=== PATIENT | male | born 1955 | race Caucasian/White ===

== ENCOUNTER 2020-06-06 09:18 | Outpatient (CLI) | payer OTHER, SELFPAY | END 2020-06-06 09:19 | disposition home or self-care (01) | LOC: ANHCOVIDVC 09:18 | PROVIDERS: PCP Family Medicine; Visit Provider Family Medicine | DX: Z23 Encounter for immunization (principal) | CPT/HCPCS: 0001A; 91300 ==

== ENCOUNTER 2020-06-27 09:14 | Outpatient (CLI) | payer OTHER, SELFPAY | END 2020-06-27 09:15 | disposition home or self-care (01) | LOC: ANHCOVIDVC 09:14 | PROVIDERS: PCP Family Medicine | DX: Z23 Encounter for immunization (principal) | CPT/HCPCS: 0002A; 91300 ==

== ENCOUNTER 2022-05-09 04:13 | Observation (INO) | payer OTHER, SELFPAY ==
[2022-05-09] VITALS (44 sets, daily range): BP systolic 111–167; BP diastolic 72–116; PULSE 49–82; RESP 11–22; TEMP 36.2–36.8; O2SAT 94–100; BMI 29.2; BMI 28.3
--- NOTE | ~2022-05-09 | CT_ITS ---
CT Abdomen and Pelvis with contrast. History: Abdominal pain. Spiral CT of the abdomen and pelvis was performed after the administration of intravenous contrast. 1 00 cc of Omnipaque 350 was administered intravenously without complication. Dose reduction technique was used on this scan by utilizing automated exposure control and iterative reconstruction technique. The dose-length product (DLP) was 947.75 mGy-cm. COMPARISON: 02/26/2019 Findings: Scans through the lung bases demonstrate mild atelectatic change. The liver, spleen, pancreas, gallbladder, and adrenal glands are within normal limits. Horseshoe kidn ey noted. No evidence of aortic aneurysm. There is no evidence of bowel obstruction. There is no evidence to suggest acute appendicitis or dive rticulitis. There is haziness of the central mesentery with mildly enlarged central mesenteric lymph nodes, consistent with mesenteric panniculitis. Images through the pelvis were performed. Urinary bladder unremarkable. Prostate gland and seminal ve sicles are unremarkable. No ascites is seen. Impression: Mesenteric panniculitis, as detailed above. Horseshoe kidney. Reviewed, dictated and finalized at [facility]. IZATION REVIEWER Impression: Mesenteric panniculitis, as detailed above. Horseshoe kidney.
--- NOTE | ~2022-05-09 | XR_ITS ---
Clinical Indication: Chest pain PA and lateral views of the chest: Comparison: 07/04/2015 Findings: The lungs are clear, without evidence of focal consolidation or pleural effusion. Cardiome diastinal silhouette is within normal limits. Bones and soft tissues are unremarkable. Impression: Normal chest. Reviewed, dictated and finalized at location . FORM BUILDER Impression: Normal chest.
--- NOTE | 2022-05-09 04:19 | ECG_ITS ---
Measurements Intervals [place] Rate: 63 P: 27 [place]: 224 QRS: 24 QRSD: 93 T: 30 QT: 373 QTc: 383 Interpretive Statements SINUS RHYTHM WITH FIRST DEGREE AV BLOCK SEPTAL MYOCARDIAL INFARCTION , OF INDETERMINATE AGE [40+ ms Q WAVE IN V1/V2] ABNORMAL ECG NO PREVIOUS ECG AVAILABLE FOR COMPARISON Electronically Signed On 05-09-2022 10:08:45 MANAGER RADIATION by Jim Carr M.D.
[2022-05-09 04:33] LABS: Basophils Percent Auto 0.5 % (0.2-1.2); Eosinophils Absolute Auto 0.3 K/mm3 (0-0.3); Eosinophils Percent Auto 3.9 % (0-4.4); Hematocrit 46.1 % (42.0-52.0); Immature Granulocyte Absolute 0.02 K/mm3 (0.00-0.031); Immature Granulocyte Percent A 0.3 % (0-0.5); Lymphocytes Absolute Auto 3.03 K/mm3 (0.9-3.2); Lymphocytes Percent Auto 39.4 % (18.3-44.2); Mean Corpuscular HGB Conc 34.7 g/dl (32-36); Mean Corpuscular Hemoglobin 29.6 pg (26-34); Mean Corpuscular Volume 85.2 fl (80-100); Monocytes Absolute Auto 0.6 K/mm3 (0.1-0.6); Monocytes Percent Auto 8.3 % (2.6-8.5); Neutrophils Absolute Auto 3.7 K/mm3 (1.3-6.7); Neutrophils Percent Auto 47.6 % (45.5-73.1); Platelet Count Result 251 k/mm3 (150-375); Red Blood Count 5.41 M/mm3 (4.6-6.20); Red Cell Distribution Width 12.9 % (11.5-14.5); White Blood Count 7.7 K/mm3 (4.5-10.0)
--- NOTE | 2022-05-09 04:43 | ED.CHESTPAIN ---
HPI - Chest Pain General Chief Complaint: Chest Pain Stated Complaint: chest pain Time Seen by Provider: 05/09/22 04:16 Source: patient, RN notes reviewed and old records reviewed Mode of arrival: ambulatory Limitations: no limitations History of Present Illness HPI narrative: This is a 67 year old male with history of hypertension, hyperlipidemia, CAD with stents who presents for evaluation of left chest pain. Patient states he woke up from his sleep with severe left upper chest pain that radiates to his back. He took 2 full strength aspirin, and he states his pain improved from 8 to 4/10. He also reports having diaphoresis at time of severe pain. He states he has similar pain years ago when he was told that he needed stent placement. He denies having exertional chest pain . He denies cough, fever, chills, vomiting. He reports chronic left flank pain that has been present for 1 year. He states his pain is intermittent. 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 Related Data Home Medications Medication Instructions Recorded Confirmed evolocumab 420 mg/3.5 mL mg subcut 08/22/20 08/22/20 subcutaneous wearable injector (Repatha Pushtronex) quinapril 10 mg tablet (Accupril) 10 mg PO DAILY 08/22/20 08/22/20 aspirin 81 mg tablet,delayed 81 mg PO DAILY 05/01/22 release (Kendall Low Dose Aspirin) carvedilol 6.25 mg tablet 6.25 mg PO ONCE 05/01/22 quinapril 20 mg tablet 20 mg PO DAILY 05/01/22 Allergies Allergy/AdvReac Type Severity Reaction Status Date / Time atorvastatin Allergy Unknown - severe Verified 05/01/22 11:27 muscular aches levofloxacin Allergy Unknown Nausea Verified 05/01/22 11:27 simvastatin Allergy Unknown -severe Verified 05/01/22 11:27 muscle aches No Known Allergies Allergy Verified 05/01/22 11:27 Review of Systems Constitutional: Constitutional: Denies weakness Cardiovascular: Cardiovascular: Denies syncope, Denies rapid heart rate, Denies irregular heart rhythm, Denies leg edema and Denies dyspnea Respiratory: Respiratory: Denies chest congestion, Denies hemoptysis, Denies excessive phlegm production and Denies dyspnea Gastrointestinal: Gastrointestinal: Reports abdominal pain, Denies hematochezia, Denies diarrhea and Denies vomiting Genitourinary: Genitourinary: Denies hematuria, Denies dysuria, Denies penile discharge and Denies testicular pain Musculoskeletal: Musculoskeletal: Denies joint swelling, Denies loss of height and Denies muscle weakness Neurologic: Denies syncope, Denies focal weakness, Reports numbness (chronic left arm from previous nerve damage) and Denies weakness PMFSH Past Medical History Medical History Angina pectoris, unspecified Anterior dislocation of left shoulder Brachial plexopathy Cardiac disorder Hypertension LLQ abdominal pain Reflux esophagitis Tietze's disease Vascular occlusion Surgical History Surgical History History of back surgery S/P Sal fundoplication (with gastrostomy tube placement) S/P ureteral stent placement Family History Family History Mother Cerebrovascular accident Father Family history of malignant neoplasm Family history of heart disease in male family member before age 55 Other Family history of congenital heart disease Social History Social History Smoking status: Never smoker Alcohol intake: current Lack of Transportation: No Lack of Food: Never True Current Housing: I Have Housing Concerned About Future Housing: No Difficulty Paying Gas/Electric Bills: No Difficulty Paying for Meds: No Currently Unemployed: No Education: High School Diploma/GED Difficulty w/ Childcare or Family Care: No Exam Const: General: no acute distress and alert Nutritional Appearance:
[2022-05-09 04:44] LABS: Alanine Aminotransferase 29 U/L (6-50); Albumin Level 4.2 g/dL (3.5-5.1); Alkaline Phosphatase 68 U/L (38-126); Anion Gap 7 mmol/L (8-16); Aspartate Amino Transferase 35 U/L (17-59); Blood Urea Nitrogen 13 mg/dL (9-20); Carbon Dioxide 28 mmol/L (22-30); Chloride 105 mmol/L (98-107); Estimated CRCL calculation 81 ml/min; Estimated Glomerular Filt Rate > 60; Glucose 94 mg/dL (65-110); INR 1.1; Lipase 907 U/L (23-300); Potassium 3.9 mmol/L (3.4-5.0); Prothrombin Time 14.1 Seconds (11.1-14.7); Sodium 140 mmol/L (137-145)
[2022-05-09 04:55] LABS: Troponin I < 0.012 ng/mL (0.000-0.034)
[2022-05-09] MEDS: NITROGLYCERIN SL 0.4 MG TABLET SUBLINGUAL (04:55)
[2022-05-09 06:51] LABS: Appearance Urine Clear (Clear); Bilirubin Urine Negative (Negative); Blood Urine Negative (Negative); Color Urine Yellow (Yellow); Glucose Urine UA Negative (Negative); Ketones Urine Negative (Negative); Leukocyte Esterase Ur Negative LEU/UL (Negative); Nitrate Urine Negative (Negative); Protein Urine Negative (Negative); Urobilinogen Urine 0.2 mg/dL (<2.0); pH Urine 5.5 (5.0-9.0)
[2022-05-09 06:58] LABS: Add Urine Microscopic? NO
[2022-05-09 08:06] LABS: Troponin I < 0.012 ng/mL (0.000-0.034)
[2022-05-09 09:58] LABS: Influenza A QL RT-PCR Negative (Negative); Influenza B QL RT-PCR Negative (Negative); SARS-CoV-2 RNA PCR Negative
[2022-05-09 10:34] LABS: Troponin I < 0.012 ng/mL (0.000-0.034)
--- NOTE | 2022-05-09 13:08 | PM.CNCAR ---
Assessment and Plan Assessment and plan (1) CAD (coronary artery disease): Code(s): I25.10 - Atherosclerotic heart disease of [place] coronary artery without angina pectoris Status: Acute Assessment and Plan: Known history of stenosis to the LAD. Continue aspirin, Repatha, carvedilol, quinapril (2) Chest pain: Code(s): R07.9 - Chest pain, unspecified Status: Acute Assessment and Plan: Chest pain is worrisome for unstable angina. Chest pain resolved with aspirin and nitroglycerin. Will receive heparin. Hold Xarelto. Continue aspirin, beta-haroon, Repatha, quinapril. After talk to him about the risks, benefits alternatives he is agreeable to proceed with a coronary angiogram to define his anatomy. I think this is reasonable given the fact he has had negative stress test in this past despite having obstructive disease and the 5 his symptoms did improve with aspirin and nitro. (3) Mixed hyperlipidemia: Code(s): E78.2 - Mixed hyperlipidemia Status: Acute Assessment and Plan: Continue Repatha (4) Essential (primary) hypertension: Code(s): I10 - Essential (primary) hypertension Status: Acute Assessment and Plan: Continue with carvedilol and quinapril History of Present Illness History of Present Illness Consult date/time: 05/09/22 13:08 Requesting physician: Radha Fulton MD Consult reason: chest pain Reason For Visit: chest pain Narrative: Date of Service 05/09/2022 Reason for consultation chest pain Requesting provider: Dr. Fulton History: Patient is a 67-year-old male who has a history of CAD. He underwent a coronary angiogram in 2018 which was IFR positive lesion in the mid LAD status post VANCE. He had 50-60% diffuse stenosis in the proximal segment RPL branch. He came to the hospital last night because of acute onset of left upper chest pain. Chest pain radiated to the back. It was not associated with the symptoms. It did not radiate down his arm back neck or jaw. His EKG showed no acute ST or T-wave abnormalities but his pain was improved with aspirin that he took home an incompletely resolved following nitroglycerin whenever he came to the ER. He denies any syncope, presyncope, paroxysmal nocturnal dyspnea, orthopnea, edema palpitations Review of Systems Review of Systems: All systems reviewed & are unremarkable except as noted in HPI and below Constitutional: Constitutional: Denies body ache(s) Eyes: Eyes: Denies blurry vision ENT: Reports Normal hearing present Cardiovascular: Cardiovascular: Reports chest pain and Denies diaphoresis Respiratory: Respiratory: Denies chest congestion and Denies cough Gastrointestinal: Gastrointestinal: Denies abdominal pain Genitourinary: Genitourinary: Denies hematuria Musculoskeletal: Musculoskeletal: Denies back pain Integumentary/Breasts: Skin/Breast: Denies pruritus Neurologic: Denies Abnormal speech present Psychiatric: Psychiatric: Denies anxiety and Denies behavioral changes Endocrine: Endocrine: Denies excessive sweating Hematologic/Lymphatic: Hematologic/Lymphatic: Denies easy bleeding Allergic/Immunologic: Allergic/Immunologic: Denies GI upset with certain foods PMFSH Past Medical History Medical History Angina pectoris, unspecified Anterior dislocation of left shoulder Brachial plexopathy Cardiac disorder Hypertension LLQ abdominal pain Reflux esophagitis Tietze's disease Vascular occlusion Surgical History Surgical History History of back surgery S/P Sal fundoplication (with gastrostomy tube placement) S/P ureteral stent placement Family History Family History Mother Cerebrovascular accident Father Family history of malignant neoplasm Family history of heart disease in male
--- NOTE | 2022-05-09 13:50 | WPDMODSED ---
Moderate Sedation Note-Pt Data Patient Data Diagnosis: Coronary artery disease Present Complaint: Coronary artery disease Procedure to be performed/Plan: Coronary artery disease, LHC, +/- PCI Allergies Allergy/AdvReac Type Severity Reaction Status Date / Time atorvastatin Allergy Unknown - severe Verified 05/01/22 11:27 muscular aches levofloxacin Allergy Unknown Nausea Verified 05/01/22 11:27 simvastatin Allergy Unknown -severe Verified 05/01/22 11:27 muscle aches No Known Allergies Allergy Verified 05/01/22 11:27 Home Medications Medication Instructions Recorded Confirmed Type evolocumab 420 mg/3.5 mL mg subcut 08/22/20 08/22/20 History subcutaneous wearable injector (Repatha Pushtronex) quinapril 10 mg tablet (Accupril) 10 mg PO DAILY 08/22/20 08/22/20 History aspirin 81 mg tablet,delayed 81 mg PO DAILY 05/01/22 History release (Kendall Low Dose Aspirin) carvedilol 6.25 mg tablet 6.25 mg PO ONCE 05/01/22 History quinapril 20 mg tablet 20 mg PO DAILY 05/01/22 History Current Medications: Active Medications Acetaminophen (Ofirmev 1,000 Mg Ivpb) 1,000 mg in 100 mls @ 400 mls/hr IVPB Q6H PRN PRN Reason: Mild Pain (1-3) or Fever Stop: 05/10/22 07:17 Sodium Chloride (Normal Saline Iv) 1,000 mls @ 125 mls/hr IV CONT .Q8H ONE Stop: 05/09/22 21:46 Morphine Sulfate (Morphine Sulfate (*Crx) 4 Mg/Ml Inj) 4 mg IV PUSH Q2H PRN PRN Reason: Pain Rated 7-10 Nitroglycerin (Nitroglycerin Sl 0.4 Mg Tablet) 0.4 mg SUBLINGUAL Q5MIN PRN PRN Reason: Chest Pain Ondansetron HCl (Ondansetron Inj 4 Mg/2 Ml Vial) 4 mg IV PUSH Q4H PRN PRN Reason: Nausea Sedation/Anesthesia: No previous sedation/anesthesia problems (including family history). FOR[facility], [facility] Past Medical History Medical History Angina pectoris, unspecified Anterior dislocation of left shoulder Brachial plexopathy Cardiac disorder Hypertension LLQ abdominal pain Reflux esophagitis Tietze's disease Vascular occlusion Surgical History Surgical History History of back surgery S/P Sal fundoplication (with gastrostomy tube placement) S/P ureteral stent placement Family History Family History Mother Cerebrovascular accident Father Family history of malignant neoplasm Family history of heart disease in male family member before age 55 Other Family history of congenital heart disease Social History Social History Smoking status: Never smoker Alcohol intake: current Lack of Transportation: No Lack of Food: Never True Current Housing: I Have Housing Concerned About Future Housing: No Difficulty Paying Gas/Electric Bills: No Difficulty Paying for Meds: No Currently Unemployed: No Education: High School Diploma/GED Difficulty w/ Childcare or Family Care: No Mod Sed Physical Exam Physical Exam Pre Procedural Exam: Normal: Appearance, Lungs, Heart Rate, Heart Rhythm, Neuro Exam, Abdomen, Extremities and Skin Hours since solid foods: 12 Hours since liquid intake: 8 Mallampati Classification: class III Internal Medicine - PN: Obj Da Vital Signs Vital Signs: Vital Signs - 24 hr 05/09/22 04:16 05/09/22 04:20 05/09/22 04:21 Temperature 36.8 C Pulse Rate 82 70 Respiratory Rate 21 H Blood Pressure 167/116 H Pulse Oximetry 98 Oxygen Delivery Room Air 05/09/22 04:49 05/09/22 04:57 05/09/22 05:00 Temperature Pulse Rate 57 L 62 64 Respiratory Rate 17 22 H 21 H Blood Pressure 140/85 Pulse Oximetry Oxygen Delivery 05/09/22 05:01 05/09/22 05:17 05/09/22 05:30 Temperature Pulse Rate 66 56 L 53 L Respiratory Rate 21 H 13 14 Blood Pressure 120/79 Pulse Oximetry Oxygen Delivery 05/09/22 05:31 05/09/22 05:32 05/09/22 06:29 Temperature
--- NOTE | 2022-05-09 13:51 | WPDCARDPROC ---
Cardiac Cath Procedure Note Date of procedure:: 05/09/22 Performing physician:: CATHETERIZATION LABORATORY REPORT Procedure Date: 05/09/2022 Barrel Charrer: Joshua Varela M.D., [facility]? Referring Physician: Vernon Carr M.D. ? Anesthesia: Versed and Fentanyl were ordered and given in my presence at 13:28, procedure ended at 13:41. Supervision of nurse monitored moderate sedation with Versed and Fentanyl was provided for 13 minutes. Total of Versed 2mg and Fentanyl 50mcg were administered by the Decision Support Manager RN Dianna Vargas. Pre-op Diagnosis: Coronary artery disease Post-op Diagnosis: 1. Nonobstructive coronary artery disease. Widely patent mid LAD stent. Mild diffuse disease of proximal RPLV. 2. Low left ventricular end-diastolic pressure of 1mmHg. Procedure(s): Left heart catheterization with coronary angiography Access Site: Right radial artery Brief History and Clinical Indications: Patient is a 67-year-old with CAD s/p prior LAD PCI who is referred for [facility] for chest pain. All risks, benefits and alternatives to left heart catheterization with or without percutaneous coronary intervention was discussed at length with the patient. Risk of complications including but not limited to bleeding, infection, arrhythmia, stroke, worsening kidney function, blood loss, groin hematoma, limb loss, emergency coronary artery bypass grafting, and even were discussed with the patient and all questions were answered. The patient understood and wished to proceed. Time out called, patient name, date of , medical record number, allergies, procedure performed, identify Barrel Charrer, patient and staff member concurred with accurate data, procedure carried on. Findings: LEFT HEART CATHETERIZATION FINDINGS: 1. Left main: The left main coronary artery is widely patent without any significant obstructive disease. 2. Left anterior descending: The proximal LAD has mild luminal irregularities. There is a widely patent stent in the mid LAD. Mid LAD has mild luminal irregularities. The distal and apical LAD has mild diffuse disease. The first diagonal vessel has mild luminal irregularities. 3. Left circumflex: The left circumflex artery and the main marginal branches have mild luminal irregularities without any significant obstructive angiographic disease. 4. Right coronary artery: The RCA is the dominant vessel. The RCA has mild diffuse disease. The proximal portion of the RPLV has mild diffuse disease. 5. Left ventricle: A. End-diastolic pressure 1mmHg. B. LV gram deferred. C. No significant gradient across aortic valve on catheter pullback. Description of Procedure: Informed consent signed and placed in the chart. Patient transferred to dental laboratory manager room. Prepped and draped in usual sterile fashion. 2% lidocaine injected subcutaneously in right wrist area. 22-gauge venipuncture catheter used to access the right radial artery with the Seldinger technique. 6-FR slender sheath placed in right radial artery. Nitroglycerine and Verapamil were given intraarterial through the sheath. Versacore wire advanced under fluoroscopy 5F Tig 4 diagnostic catheter engaged Left Main Coronary Artery. 5F Tig 4 diagnostic catheter engaged Right Coronary Artery Multiple orthogonal angiogram obtained and reviewed 5F Tig 4 diagnostic catheter crossed aortic valve to obtain LVEDP, LV angiogram deferred. Hemostasis was achieved by application of TR band. ? Assessment: 1. Nonobstructive coronary artery disease. Widely patent mid LAD stent. Mild diffuse disease of proximal RPLV. 2. Low left ventricular end-diastolic pressure of 1mmHg. Post Operative Condition: Stable No significant blood loss Disposition: Floor Plan: The patient will be monitored in the recovery area. Transfer back to floor after post-cath bed rest is completed. The above findings were discussed with the referring physician. Continue aggressive medical therapy and risk factor modificatio
--- NOTE | 2022-05-09 16:40 | ADMGEN ---
This patient, Lauro Roger, was admitted to IMU Room 206-02. Patient/family oriented to hospital policies and general routines including ID bracelet, bed and alarms, visiting hours, pain management, procedures, bathroom and other care routines, personal items, smoking policy, room service/diet, and visiting hours. Information on how to activate the Rapid Response Team has been discussed. Patient/Family are encouraged to report perceived risks to care and to ask questions if they do not understand what they are told or what they should do.
--- NOTE | 2022-05-09 17:00 | PM.SD2 ---
Same Day Admit/Disch: HPI History of Present Illness Chief complaint: chest pain Narrative: Lauro Roger is a 67 year old male With history of CAD, hypertension hyperlipidemia who presents with complaints of chest pain. Patient awoke around 330am this morning to void. He noted left upper chest pain that radiated to his back. He was diaphoretic but no shortness of breath or nausea. Pain was continuous. Do not change when he walked to the bathroom. Took 2 full aspirin with some improvement but given that it persisted he came by personal car to the ED. Patient has a history of coronary disease and has stent placed in 2018. He has not had a stress test since that time. The chest pain he is experiencing this admission is similar to the the pain he had in 2018. In the emergency room, patient received nitroglycerin and Tylenol with resolution of his chest pain. He was admitted for further care. He does walk daily and denies any chest pain or shortness a breath with this activity. He has been having left flank pain for past 4-5 months. No nausea or vomiting. No weight loss. Pain appears to be positional. No fever or chills. No night sweats. Does have chronic back pain that radiates down his legs which he has had for years. The left flank pain does radiate into the groin at times. No hematuria but does have dysuria. No melena or hematochezia. He also has been having left-sided headaches recently last about 10-15 minutes and usually occur after taking his medications. He takes ibuprofen with benefit. No trauma or head injury. The remainder of the review of systems was negative. [facility] Past Medical History Medical History Angina pectoris, unspecified Anterior dislocation of left shoulder Brachial plexopathy Cardiac disorder Hypertension LLQ abdominal pain Reflux esophagitis Tietze's disease Vascular occlusion Surgical History Surgical History History of back surgery S/P Sal fundoplication (with gastrostomy tube placement) S/P ureteral stent placement Family History Family History Mother Cerebrovascular accident Father Family history of malignant neoplasm Family history of heart disease in male family member before age 55 Other Family history of congenital heart disease Social History Social History Smoking status: Never smoker Alcohol intake: current Lack of Transportation: No Lack of Food: Never True Current Housing: I Have Housing Concerned About Future Housing: No Difficulty Paying Gas/Electric Bills: No Difficulty Paying for Meds: No Currently Unemployed: No Education: High School Diploma/GED Difficulty w/ Childcare or Family Care: No Spiritual care concerns: No Same Day Admit/Disch: Med Pre-admit Medications Home Medications Medication Instructions Recorded Confirmed Type evolocumab 420 mg/3.5 mL 420 mg subcut MONTHLY 08/22/20 05/09/22 History subcutaneous wearable injector (Repatha Pushtronex) aspirin 81 mg tablet,delayed 81 mg PO DAILY 05/01/22 05/09/22 History release (Kendall Low Dose Aspirin) carvedilol 6.25 mg tablet 6.25 mg PO ONCE 05/01/22 05/09/22 History quinapril 20 mg tablet 20 mg PO DAILY 05/01/22 05/09/22 History rivaroxaban 2.5 mg tablet (Xarelto) 2.5 mg BID 05/09/22 05/09/22 History Exam Narrative: AF 97.1 111/81 61 16 100% ra Gen - well-nourished, well-developed male in no acute respiratory distress who is nontoxic-appearing lying semi recumbent in bed HEENT - normocephalic. Atraumatic. Pupils equal round and reactive. Extraocular motions intact. Sclera clear and anicteric. Nares patent. Oropharynx was clear. No oral lesions. Moist mucous membranes. Tongue was midline. Palate callum symmetrically. No facial asymme
== END 2022-05-09 18:07 | disposition home or self-care (01) ==
LOC: ANHED 08:19 → ANHIMU 17:21
PROVIDERS: Emergency Medicine; Internal Medicine; Admitting Provider Internal Medicine; Emergency Provider General Practice; PCP Family Medicine; Visit Provider Internal Medicine
PROC: 4A023N7 Measurement of Cardiac Sampling and Pressure, Left Heart, Percutaneous Approach (ICD-10-PCS; CPT 93452; principal; 2022-05-09 13:15)
DX: I25.10 Atherosclerotic heart disease of native coronary artery without angina pectoris (principal); Z95.5 Presence of coronary angioplasty implant and graft; R07.9 Chest pain, unspecified; E78.2 Mixed hyperlipidemia; I10 Essential (primary) hypertension; R10.9 Unspecified abdominal pain; F10.90 Alcohol use, unspecified, uncomplicated; Z20.822 Contact with and (suspected) exposure to COVID-19; Q63.1 Lobulated, fused and horseshoe kidney; K65.4 Sclerosing mesenteritis; M94.0 Chondrocostal junction syndrome [Tietze]; Z79.82 Long term (current) use of aspirin; Z79.899 Other long term (current) drug therapy
CPT/HCPCS: 36415; 71046; 74177; 80053; 81003; 83690; 84484; 85025; 85610; 85730; 87636; 93005; 93458; 96365; 99285; A9270; C1769; C1887; C1894; G0378; J0131; J1644; J2250; J3010; J7040; Q9967

== ENCOUNTER 2022-05-13 09:35 | Outpatient (CLI) | payer OTHER, SELFPAY ==
[2022-05-13 22:20] LABS: Alanine Aminotransferase 33 U/L (6-50); Albumin Level 4.3 g/dL (3.5-5.1); Alkaline Phosphatase 64 U/L (38-126); Amylase 102 U/L (30-110); Anion Gap 6 mmol/L (8-16); Aspartate Amino Transferase 53 U/L (17-59); Bilirubin,Total 0.9 mg/dL (0.2-1.3); Blood Urea Nitrogen 16 mg/dL (9-20); Calcium 8.7 mg/dL (8.4-10.2); Carbon Dioxide 30 mmol/L (22-30); Chloride 101 mmol/L (98-107); Erythrocyte Sedimentation Rate 10 mm/hr (0-20); Estimated Glomerular Filt Rate > 60; Glucose 95 mg/dL (65-110); Lipase 330 U/L (23-300); Potassium 4.2 mmol/L (3.4-5.0); Sodium 137 mmol/L (137-145)
[2022-05-14 10:47] LABS: Lactate Dehydrogenase 202 U/L (120-246)
== END 2022-05-13 09:36 | disposition home or self-care (01) ==
LOC: ANHGOSHLAB 09:39
PROVIDERS: PCP Family Medicine; Visit Provider Internal Medicine
DX: K65.4 Sclerosing mesenteritis (principal); R74.8 Abnormal levels of other serum enzymes
CPT/HCPCS: 36415; 80053; 82150; 83615; 83690; 85652

== ENCOUNTER 2023-01-02 13:49 | Outpatient (CLI) | payer OTHER, SELFPAY ==
--- NOTE | ~2023-01-02 | US_ITS ---
EXAMINATION: US carotid duplex BI DATE: 01/02/2023 14:41 INDICATION: Right carotid bruit TECHNIQUE: Grayscale, color Doppler, and pulsed Doppler images of the cervical carotid arteries were obtained. The degree of vessel stenosis is placed in one of the following categories: normal, <50%, 5 0-69%, >=70% but less than near-occlusion, near-occlusion, or total occlusion. Note that percent sten osis relative to normal distal artery lumen diameter is indirectly measured from velocity measurement s as described by Luis, et al. Radiology 2003; 229:340-346. Notes: Normal: Peak systolic velocity <125 centimeters/sec and no plaque <50%. Peak systolic velocity <125 ( EDV <40; ICA/CCA PSV ratio <2.0; used these factors only a tandem lesions or low cardiac output or co ntralateral disease) 50-69 %: PSV 125-230 (EDV 40-100; ratio 2-4) >= 70% but less than near occlusion: PSV greater than 230 (EDV > 100; ratio> 4.0) Near Occlusion: PSV that is variable; markedly narrowed lumen Occlusion: Absent flow on color/spectral Doppler and no lumen on cherry scale. COMPARISON: None. FINDINGS: RIGHT: The right common carotid artery (CCA) peak systolic velocity (PSV) is 89 cm/s. The right internal car otid artery (ICA) PSV is 57 cm/s. The right ICA end-diastolic velocity (EDV) is 22 cm/s. The right IC A/CCA PSV ratio is 0.6. The external carotid artery (ECA) PSV is 136 cm/s. There is antegrade flow in the right vertebral artery. LEFT: The left CCA PSV is 81 cm/s. The left ICA PSV is 66 cm/s. The left ICA EDV is 26 cm/s. The left ICA/C CA PSV ratio is 0.8. The ECA PSV is 63 cm/s. There is antegrade flow in the left vertebral artery. IMPRESSION: 1. Less than 50% stenosis in the right internal carotid artery by sonographic criteria. 2. Less than 50% stenosis in the left internal carotid artery by sonographic criteria. Reviewed, dictated and finalized at location [facility]. IMPRESSION: 1. Less than 50% stenosis in the right internal carotid artery by sonographic andreia simental. 2. Less than 50% stenosis in the left internal carotid artery by sonographic olaf damico.
== END 2023-01-02 13:50 | disposition home or self-care (01) ==
PROVIDERS: PCP Family Medicine; Visit Provider Internal Medicine Cardiovascular Disease
DX: I65.23 Occlusion and stenosis of bilateral carotid arteries (principal); R09.89 Other specified symptoms and signs involving the circulatory and respiratory systems
CPT/HCPCS: 93880

== ENCOUNTER 2023-01-07 09:47 | Outpatient (CLI) | payer OTHER, SELFPAY ==
[2023-01-07 18:26] LABS: Basophils Percent Auto 0.5 % (0.2-1.2); Eosinophils Absolute Auto 0.2 K/mm3 (0-0.3); Eosinophils Percent Auto 3.3 % (0-4.4); Hematocrit 44.9 % (42.0-52.0); Hemoglobin 14.9 g/dL (14.0-18.0); Immature Granulocyte Absolute 0.03 K/mm3 (0.00-0.031); Immature Granulocyte Percent A 0.5 % (0-0.5); Lymphocytes Absolute Auto 1.58 K/mm3 (0.9-3.2); Mean Corpuscular HGB Conc 33.2 g/dl (32-36); Mean Corpuscular Hemoglobin 29.1 pg (26-34); Mean Corpuscular Volume 87.7 fl (80-100); Mean Platelet Volume 9.7 fl (7.4-10.4); Monocytes Absolute Auto 0.4 K/mm3 (0.1-0.6); Monocytes Percent Auto 7.2 % (2.6-8.5); Neutrophils Absolute Auto 3.8 K/mm3 (1.3-6.7); Neutrophils Percent Auto 62.5 % (45.5-73.1); Platelet Count Result 224 k/mm3 (150-375); Red Blood Count 5.12 M/mm3 (4.6-6.20); Red Cell Distribution Width 13.2 % (11.5-14.5); White Blood Count 6.1 K/mm3 (4.5-10.0)
[2023-01-07 19:11] LABS: Alanine Aminotransferase 28 U/L (6-50); Albumin Level 4.1 g/dL (3.5-5.1); Alkaline Phosphatase 61 U/L (38-126); Amylase 81 U/L (30-110); Anion Gap 6 mmol/L (8-16); Aspartate Amino Transferase 41 U/L (17-59); Bilirubin,Total 1.2 mg/dL (0.2-1.3); Blood Urea Nitrogen 11 mg/dL (9-20); CRP 0.7 mg/dL (<1.0); Calcium 8.9 mg/dL (8.4-10.2); Carbon Dioxide 32 mmol/L (22-30); Chloride 101 mmol/L (98-107); Cholesterol 118 mg/dL (0-200); Estimated Glomerular Filt Rate > 60; Glucose 90 mg/dL (65-110); HDL Direct 46 mg/dL; Lipase 197 U/L (23-300); Sodium 139 mmol/L (137-145); Triglycerides 124 mg/dL (<150)
[2023-01-07 19:20] LABS: LDL Cholesterol Direct 56 mg/dL
[2023-01-07 19:33] LABS: Erythrocyte Sedimentation Rate 12 mm/hr (0-20)
== END 2023-01-07 09:48 | disposition home or self-care (01) ==
LOC: ANHGOSHLAB 09:49
PROVIDERS: PCP Family Medicine; Visit Provider Nurse Practitioner Family
DX: R10.9 Unspecified abdominal pain (principal); E78.2 Mixed hyperlipidemia; I10 Essential (primary) hypertension; R74.8 Abnormal levels of other serum enzymes; K65.4 Sclerosing mesenteritis
CPT/HCPCS: 36415; 80053; 80061; 82150; 83690; 84443; 85025; 85652; 86140

== ENCOUNTER → 2023-01-09 10:36 | Outpatient (CLI) | payer OTHER, SELFPAY ==
--- NOTE | ~2023-01-09 | CT_ITS ---
EXAMINATION: CT abdomen pelvis w con DATE: 01/09/2023 11:05 INDICATION: Elevated serum liver enzymes TECHNIQUE: Computed tomography (CT) of the abdomen and pelvis was performed with 100 CC Omnipaque 350 intravenous contrast. Automated exposure control and iterative reconstruction technique were employe d. Exam dose: 1123.86 mGy-cm total exam DLP. COMPARISON: May 09, 2022 CT abdomen pelvis FINDINGS: Calcified right hilar and subcarinal lymph nodes and calcified right lower lobe pulmonary g ranuloma, consistent with old pulmonary granulomatous disease. Normal heart size. No pericardial or pleural effusion. Small sliding hiatal hernia. The gallbladder is unremarkable. No bile duct or pancreatic duct dilatation. No hepatic, pancreatic or splenic space-occupying mass lesion. Normal morphology of the adrenal glands. Horseshoe kidney There are several renal cysts measuring up to 13 mm maximal dimension No urinary tract calculus or hydroureteronephrosis. There is atherosclerotic calcification but normal caliber of the abdominal aorta. No intraperitoneal or retroperitoneal or pelvic mass lesion or adenopathy or ascites. Normal appendix. No bowel obstruction, bowel wall thickening, pneumatosis or intraperitoneal free air . Diminished haziness of the central mesentery and diminished prominence of mesenteric lymph nodes sugg esting improvement of mesenteric panniculitis since 05/09/2022.. Small fat-containing left inguinal hernia. Small fat-containing umbilical hernia. Bilateral hip osteoarthritis, worse on the right. Diffuse idiopathic skeletal hyperostosis of the thoracic spine. Moderately severe degenerative disc disease and mild retrolisthesis at L3-4. Degenerative change at t he lumbar and lumbosacral apophyseal joints with minimal grade 1 anterolisthesis at L4-5. No suspicious osteolytic or osteoblastic lesions. 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 Reviewed, dictated and finalized at location L.
== END ==
PROVIDERS: PCP Nurse Practitioner Family; Visit Provider Nurse Practitioner Family
DX: R74.8 Abnormal levels of other serum enzymes (principal); K65.4 Sclerosing mesenteritis
CPT/HCPCS: 74177; Q9967

== ENCOUNTER 2023-08-07 10:05 | Outpatient (CLI) | payer OTHER, SELFPAY ==
[2023-08-07 19:44] LABS: Prostate Specific Antigen 0.5 ng/mL (< OR = 4.0)
== END 2023-08-07 10:06 | disposition home or self-care (01) ==
LOC: ANHGOSHLAB 10:06
PROVIDERS: PCP Family Medicine; Visit Provider Family Medicine
DX: Z12.5 Encounter for screening for malignant neoplasm of prostate (principal); Z80.42 Family history of malignant neoplasm of prostate
CPT/HCPCS: 36415; 84153; G0103

== ENCOUNTER 2023-08-07 10:18 | Outpatient (CLI) | payer OTHER, SELFPAY ==
--- NOTE | ~2023-08-07 | XR_ITS ---
AP view of the pelvis and AP and lateral views of the bilateral hips Clinical history: Pain Findings: No acute fracture or dislocation is seen. Osseous alignment is anatomic. There is moderate to advanced right hip joint degenerative change. There is mild left hip joint degenerative change. So ft tissues are unremarkable. Impression: Moderate to advanced right hip joint degenerative change. Mild left hip joint degenerative change. Reviewed, dictated and finalized at location M. Impression: Moderate to advanced right hip joint degenerative change. Mild left hip joint degenerative change.
== END 2023-08-07 10:19 ==
PROVIDERS: PCP Family Medicine; Visit Provider Family Medicine
DX: M16.10 Unilateral primary osteoarthritis, unspecified hip (principal)
CPT/HCPCS: 73521

== ENCOUNTER 2024-12-07 10:29 | Outpatient (CLI) | payer OTHER, SELFPAY ==
--- NOTE | ~2024-12-07 | US_ITS ---
Examination: US abdomen complete Clinical History: R10.9 - Unspecified abdominal pain . Comparison: CT abdomen and pelvis 01/09/2023 Technique: Complete abdominal sonography Findings: Liver: Normal size. Normal echotexture. No intrahepatic biliary ductal dilatation. Normal hepatopedal flow may portal vein. Common duct: Normal caliber, 5 mm. Gallbladder: No stones. No wall thickening. No pericholecystic fluid. Spleen: Unremarkable. Pancreas: Largely obscured by bowel gas. Kidneys: Horseshoe configuration. A few cysts. Aorta: No aneurysmal dilatation. Retrohepatic IVC: Unremarkable. IMPRESSION: 1. No acute findings. Reviewed, dictated and finalized at location R. IMPRESSION: 1. No acute findings.
== END 2024-12-07 10:30 | disposition home or self-care (01) ==
LOC: GOSHIMG 10:29
PROVIDERS: PCP Family Medicine; Visit Provider Nurse Practitioner Family
DX: R10.9 Unspecified abdominal pain (principal)
CPT/HCPCS: 76700

== ENCOUNTER 2025-01-25 16:58 | Emergency (ER) | payer MEDICARE, BC, SELFPAY ==
[2025-01-25] VITALS (9 sets, daily range): BP systolic 116–157; BP diastolic 76–92; PULSE 50–68; RESP 14–22; O2SAT 96–100
--- NOTE | ~2025-01-25 | CT_ITS ---
CT brain wo con HISTORY:L sided headache COMPARISON: None. TECHNIQUE: Axial images were obtained of the head without intravenous contrast. FINDINGS: No acute intracranial hemorrhage, mass effect or midline shift. No extra-axial fluid collections. The calvarium is intact. Visualized paranasal sinuses and mastoid air cells are clear. IMPRESSION: No acute intracranial hemorrhage or extra axial fluid collections. All CT scans at this facility are performed using low dose modulation techniques as appropriate to perform exam including the following: automated exposure control; use of iterative reconstruction technique; adjustment of the mA and/or kV according to patient size (this includes techniques or standardized protocols for targeted exams where dose is matched to indication/reason for exam). Reviewed, dictated and finalized at location S. IMPRESSION: No acute intracranial hemorrhage or extra axial fluid collections. All CT scans at this facility are performed using low dose modulation techniqu es as appropriate to perform exam including the following: automated exposure c ontrol; use of iterative reconstruction technique; adjustment of the mA and/or kV according to patient size (this includes techniques or standardized protocol s for targeted exams where dose is matched to indication/reason for exam).
--- NOTE | ~2025-01-25 | XR_ITS ---
EXAMINATION: XR chest 2V, 01/25/2025 17:09 CDT HISTORY: cp COMPARISON: No comparisons available. Technique: 2 views obtained. Findings: The lungs are clear, no effusion. No pneumothorax. Heart is normal size. Mediastinal and hilar contours are within normal limits. Bony thorax no acute abnormality. Impression: No acute cardiopulmonary abnormality. Reviewed, dictated and finalized at location P. Impression: No acute cardiopulmonary abnormality.
--- NOTE | ~2025-01-25 | CT_ITS ---
CTA chest PE protocol HISTORY:shortness of breath, chest pain, elevated dimer . COMPARISON: None. 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 Post-processing on an independent workstation was performed to reconstruct MIP images for evaluation of the thoracic vasculature. FINDINGS: There is no pulmonary embolism, aortic dissection, thoracic aneurysm or pericardial fluid. The lung parenchyma is clear. No pleural effusion or pneumothorax is noted. There is no axillary, mediastinal or hilar adenopathy. 12 mm polyp within the distal esophagus. Follow-up endoscopy is recommended. Review of bone windows demonstrates no osteoblastic or lytic lesions. IMPRESSION: There is no pulmonary embolism, aortic dissection, pericardial fluid or thoracic aneurysm. No acute lung findings. There is a polyp in the distal esophagus. Endoscopy is recommended. All CT scans at this facility are performed using low dose modulation techniques as appropriate to perform exam including the following: automated exposure control; use of iterative reconstruction technique; adjustment of the mA and/or kV according to patient size (this includes techniques or standardized protocols for targeted exams where dose is matched to indication/reason for exam). Reviewed, dictated and finalized at location S. IMPRESSION: There is no pulmonary embolism, aortic dissection, pericardial fluid or thoraci c aneurysm. No acute lung findings. There is a polyp in the distal esophagus. Endoscopy is recommended. All CT scans at this facility are performed using low dose modulation techniqu es as appropriate to perform exam including the following: automated exposure c ontrol; use of iterative reconstruction technique; adjustment of the mA and/or kV according to patient size (this includes techniques or standardized protocol s for targeted exams where dose is matched to indication/reason for exam).
--- NOTE | 2025-01-25 16:59 | ECG_ITS ---
Test Date: 2025-01-25 17:03:47 Measurements Intervals [place] Rate: 56 P: -53 [place]: 174 QRS: 53 QRSD: 90 T: 54 QT: 371 QTc: 361 Interpretive Statements SINUS BRADYCARDIA ANTEROSEPTAL INFARCT, AGE INDETERMINATE BASELINE ARTIFACT- I, II, AVR, AVL, AVF ABNORMAL ECG No previous ECG available for comparison Electronically Signed On 01-25-2025 20:13:41 CDT by Fahad Smith D.O.
[2025-01-25 17:19] LABS: Hematocrit 45.0 % (42.0-52.0); Hemoglobin 15.0 g/dL (14.0-18.0); Immature Granulocyte Percent A 0.4 % (0-0.5); Lymphocytes Absolute Auto 2.43 K/mm3 (0.9-3.2); Mean Corpuscular HGB Conc 33.3 g/dl (32-36); Mean Corpuscular Hemoglobin 28.1 pg (26-34); Mean Corpuscular Volume 84.3 fl (80-100); Nucleated Red Blood Cells Absolute Auto 0.000 K/mm3 (0.0-0.012); Nucleated Red Blood Cells Perc 0.0 % (0.0-0.2); Platelet Count Result 262 k/mm3 (150-375); Red Blood Count 5.34 M/mm3 (4.6-6.20); White Blood Count 7.8 K/mm3 (4.5-10.0)
[2025-01-25] MEDS: ASPIRIN 81 MG CHEWABLE TABLET 324 MG PO (17:31)
[2025-01-25 17:37] LABS: INR 1.0; Prothrombin Time 12.9 Seconds (11.1-14.7)
[2025-01-25 17:38] LABS: Partial Thromboplastin Time 27.5 Seconds (22.3-36.8)
[2025-01-25 17:42] LABS: Alanine Aminotransferase 24 U/L (6-50); Albumin Level 4.3 g/dL (3.5-5.1); Alkaline Phosphatase 71 U/L (38-126); Anion Gap 6 mmol/L (4-12); Aspartate Amino Transferase 28 U/L (17-59); Bilirubin,Total 1.0 mg/dL (0.2-1.3); Blood Urea Nitrogen 14 mg/dL (9-20); Calcium 9.4 mg/dL (8.4-10.2); Carbon Dioxide 28 mmol/L (22-30); Chloride 101 mmol/L (98-107); Estimated Glomerular Filt Rate > 60; Glucose 100 mg/dL (65-110); Lipase 199 U/L (23-300); Potassium 3.8 mmol/L (3.4-5.0); Sodium 135 mmol/L (137-145); Total Protein 7.4 g/dL (6.3-8.2)
[2025-01-25 17:53] LABS: Troponin I < 0.012 ng/mL (0.000-0.034)
--- NOTE | 2025-01-25 17:58 | ED.CHESTPAIN ---
HPI - Chest Pain General Chief Complaint: Chest Pain Stated Complaint: SOB, headache, chest pain Time Seen by Provider: 01/25/25 17:44 History of Present Illness HPI narrative: Patient is a 69-year-old male who presents to the ER with intermittent shortness of breath over the past 2 weeks. He also endorses left chest pain, and headache. Patient denies any lower extremity swelling, recent fevers, or cough. 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 Patient also endorses a history of hypertension, a Sal and back surgery. He reports his symptoms started today around 3:00 p.m.. Related Data Home Medications ?Medication ?Instructions ?Recorded ?Confirmed ?Last Taken ?Type evolocumab 420 mg/3.5 mL 420 mg subcut MONTHLY 08/22/20 01/25/25 01/06/25 History subcutaneous wearable injector (Repatha Pushtronex) aspirin 81 mg tablet,delayed 81 mg PO DAILY 05/01/22 01/25/25 01/25/25 History release (Kendall Low Dose Aspirin) carvedilol 6.25 mg tablet 6.25 mg PO ONCE 05/01/22 01/25/25 01/25/25 History lisinopril 20 mg tablet 20 mg PO DAILY 01/07/23 01/25/25 01/25/25 History magnesium 200 mg tablet 200 mg PO DAILY 08/07/23 01/25/25 01/25/25 History Allergies Allergy/AdvReac Type Severity Reaction Status Date / Time atorvastatin Allergy Unknown - severe Verified 01/25/25 17:04 muscular aches levofloxacin Allergy Unknown Nausea Verified 01/25/25 17:04 simvastatin Allergy Unknown -severe Verified 01/25/25 17:04 muscle aches Review of Systems Review of Systems: All systems reviewed & are unremarkable except as noted in HPI and below PMFSH Past Medical History Medical History Anterior dislocation of left shoulder Vascular occlusion Tietze's disease Reflux esophagitis LLQ abdominal pain Brachial plexopathy Angina pectoris, unspecified Hypertension Cardiac disorder Surgical History Surgical History S/P Sal fundoplication (with gastrostomy tube placement) History of back surgery S/P ureteral stent placement Family History Family History Mother Cerebrovascular accident Father Family history of malignant neoplasm Family history of heart disease in male family member before age 55 Other Family history of congenital heart disease Social History Social History Smoking status: Never smoker Alcohol intake: current Lack of Transportation: No Lack of Food: Never True Current Housing: I Have Housing Concerned About Future Housing: No Difficulty Paying Gas/Electric Bills: No Difficulty Paying for Meds: No Currently Unemployed: No Education: High School Diploma/GED Difficulty w/ Childcare or Family Care: No Spiritual care concerns: No Exam Narrative: GENERAL: Well appearing, well-nourished, non-toxic, in no acute distress. HEAD: Normocephalic, atraumatic. NECK: Supple. No adenopathy, no masses. RESPIRATORY: Airway patent, respirations nonlabored. Clear to auscultation bilaterally, no rales, rhonchi, wheezing. CARDIOVASCULAR: Regular rate and rhythm without murmurs, rubs, or gallops. Peripheral pulses 2+ and equal bilaterally. ABDOMINAL: Soft, nontender, nondistended, no hepatosplenomegaly. Normoactive BS. MUSCULOSKELETAL: Moves all extremities. Strength/ROM intact without gross deformities. SKIN: Warm, dry, normal color. No rashes. NEURO: A&O X3. Speech clear. Cranial nerves II-XII intact. No ataxic movements. PSYCHIATRIC: Appropriate mood and affect. Normal interaction. Course Vital Signs Vital signs: Vital Signs Pulse Rate 54 L 01/25/25 17:45 Pulse Oximetry 98 01/25/25 17:45 Oxygen Delivery Room Air 01/25/25 17:45 Pulse Rate 57 L 01/25/25 18:43 Respiratory Rate 16 01/25/25 18:43 Blood Pressure 152/78 H 01/25/25 18:43 Pulse Oximetry 99 01/25/25 18:43 Oxygen Delivery Room Air 01/25/25 17:45 MDM - Chest Pain MDM Narrative Medical decision making narrative: Patient is a 69-year-old male who presents to the ER with intermittent shortness of breath over the past 2 weeks. He also endorses left chest pain, and headache. Patient denies any lower extremity swelling, recent fevers, or cough. 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 Patient also endorses a history of hypertension, a Sal and back surgery. He reports his symptoms started today around 3:00 p.m.. Labs Ordered: CBC, CMP, D-dimer, TSH, troponin, lipase, PTT, INR Imaging Ordered: CTA chest, CT brain, chest x-ray Medications Ordered: 1 L normal saline IV bolus, GI cocktail, Toradol IV, Benadryl IV, Decadron IV, Reglan IV Results: Pt's CT scan indicates There is no pulmonary embolism, aortic dissection, thoracic aneurysm or pericardial fluid. The lung parenchyma is clear. No pleural effusion or pneumothorax is noted. There is no axillary, mediastinal or hilar adenopathy. 12 mm polyp within the distal esophagus. Follow-up endoscopy is recommended. Review of bone windows demonstrates no osteoblastic or lytic lesions. Diagnosis: Esophageal polyp, GERD, migraine headache Risks: HEART score: moderate risk HEART Score for Major Cardiac Events from [email or web address] on 01/25/2025 All calculations should be rechecked by clinician prior to use RESULT SUMMARY: 4 points Moderate Score (4-6 points) Risk of MACE of 12-16.6%. INPUTS: History ?> 1 = Moderately suspicious EKG ?> 0 = Normal Age ?> 2 = >=5 Risk factors ?> 1 = 1-2 risk factors Initial troponin ?> 0 = <Normal limit Consults: Gastroenterology (outpatient) Patient Education/Shared MDM: Results of lab work and imaging shared with patient. He endorses improvement of symptoms following medication administration. Patient strongly advised to maintain hydration status upon discharge and follow-up with Gastroenterology as soon as possible. He will not be discharged home with any new prescriptions. Strict return precautions provided. Patient verbalized understanding and is in agreement with plan. Vital signs stable at time of discharge. All questions answered. Differential Diagnosis Differential diagnosis: Likely atypical chest pain, st elevation myocardial infarction, costochondritis, chest pain and other (Esophageal polyp, GERD) Lab Data Attestation: I reviewed the patient's lab results. 01/25/25 17:11 01/25/25 17:11 Labs: Lab Results 10/01/25/25 01/25/25 Range/Units 17:11 18:13 19:59 WBC 7.8 (4.5-10.0) K/mm3 RBC 5.34 (4.6-6.20) M/mm3 Hgb 15.0 (14.0-18.0) g/dL Hct 45.0 (42.0-52.0) % MCV 84.3 (80-100) fl MCH 28.1 (26-34) pg MCHC 33.3 (32-36) g/dl RDW 12.6 (11.5-14.5) % Plt Count 262 (150-375) k/mm3 MPV 8.8 (7.4-10.4) fl Immature Gran % (Auto) 0.4 (0-0.5) % Neut % (Auto) 56.0 (45.5-73.1) % Lymph % (Auto) 31.3 (18.3-44.2) % [place] % (Auto) 8.1 (2.6-8.5) % Eos % (Auto) 3.6 (0-4.4) % Baso % (Auto) 0.6 (0.2-1.2) % Lymph # (Auto) 2.43 (0.9-3.2) K/mm3 [place] # (Auto) 0.6 (0.1-0.6) K/mm3 Eos # (Auto) 0.3 (0-0.3) K/mm3 Baso # (Auto) 0.1 (0.0-0.1) K/mm3 Abs Immat Gran (auto) 0.03 (0.00-0.031) K/mm3 Absolute Neuts (auto) 4.4 (1.3-6.7) K/mm3 Absolute Nucleated RBC 0.000 (0.0-0.012) K/mm3 Nucleated RBC % 0.0 (0.0-0.2) % PT 12.9 (11.1-14.7) Seconds INR 1.0 APTT 27.5 (22.3-36.8) Seconds D-Dimer 0.70 H (<0.48) ug/mL Sodium 135 L (137-145) mmol/L Potassium 3.8 (3.4-5.0) mmol/L Chloride 101 (98-107) mmol/L Carbon Dioxide 28 (22-30) mmol/L Anion Gap 6 (4-12) mmol/L BUN 14 (9-20) mg/dL Creatinine 0.82 (0.7-1.3) mg/dL Estim Creat Clear Calc Not Reportable Estimated GFR > 60 (59 - ) Glucose 100 (65-110) mg/dL Calcium 9.4 (8.4-10.2) mg/dL Total Bilirubin 1.0 (0.2-1.3) mg/dL AST 28 (17-59) U/L ALT 24 (6-50) U/L Alkaline Phosphatase 71 (38-126) U/L Troponin I < 0.012 < 0.012 (0.000-0.034) ng/mL NT-Pro-B Natriuret Pep 68 (19.9-100) pg/mL Total Protein 7.4 (6.3-8.2) g/dL Albumin 4.3 (3.5-5.1) g/dL Lipase 199 (23-300) U/L TSH (Reflex) 1.310 (0.465-4.68) uIU/mL Influenza A (RT-PCR) Negative (Negative) Influenza B (RT-PCR) Negative (Negative) RSV (RT-PCR) Negative (Negative) SARS-CoV-2 RNA (RT-PCR) Negative (Negative) Imaging Data Attestation: I personally reviewed and interpreted this imaging study as follows: Radiologist's impression: Impressions Chest X-Ray 01/25/25 17:16 Impression: No acute cardiopulmonary abnormality. Head CT 01/25/25 18:34 IMPRESSION: No acute intracranial hemorrhage or extra axial fluid collections. All CT scans at this facility are performed using low dose modulation techniques as appropriate to perform exam including the following: automated exposure control; use of iterative reconstruction technique; adjustment of the mA and/or kV according to patient size (this includes techniques or standardized protocols for targeted exams where dose is matched to indication/reason for exam). Chest CTA 01/25/25 18:50 IMPRESSION: There is no pulmonary embolism, aortic dissection, pericardial fluid or thoracic aneurysm. No acute lung findings. There is a polyp in the distal esophagus. Endoscopy is recommended. All CT scans at this facility are performed using low dose modulation techniques as appropriate to perform exam including the following: automated exposure control; use of iterative reconstruction technique; adjustment of the mA and/or kV according to patient size (this includes techniques or standardized protocols for targeted exams where dose is matched to indication/reason for exam). Discharge Plan Discharge Clinical Impression: Esophageal polyp, Atypical chest pain, Mild shortness of breath, Headache Patient Disposition: Home Condition: Stable Instructions: Antibiotic Form, Noncardiac Chest Pain (ED) Additional Instructions: Please return to the ER with any worsening symptoms. Follow-up with Gastroenterology as soon as possible. Take all medications as prescribed, including regularly scheduled medications. You may try taking acid reflux medication if your symptoms return. Please take Tylenol as needed for pain control. Patient Language: Kittitian Prescriptions: No Action Repatha Pushtronex 420 mg/3.5 mL wearable injector 420 mg subcut MONTHLY magnesium 200 mg tablet 200 mg PO DAILY diclofenac sodium 50 mg tablet,delayed release (DR/EC) 50 mg PO TID PRN (Reason: pain) Qty: 60 1RF carvedilol 6.25 mg tablet 6.25 mg PO ONCE aspirin [Kendall Low Dose Aspirin] 81 mg tablet,delayed release (DR/EC) 81 mg PO DAILY lisinopril 20 mg tablet 20 mg PO DAILY Follow-up/Referrals: Dangelo Macdonald MD [Primary Care Provider, Family Practice] Rambo Alcazar MD [Physician, Gastroenterology] Referral Note: GI Time of Disposition: 20:57
[2025-01-25 18:31] LABS: NT Pro B Type Natriuretic Pept 68 pg/mL (19.9-100)
[2025-01-25] MEDS: SODIUM CHLORIDE 0.9% IV 1,000 ML 999 ML IV CONT (18:45)
[2025-01-25] MEDS: METOCLOPRAMIDE HCL INJ 10 MG/2 ML VIAL IV PUSH (18:46)
[2025-01-25] MEDS: dexAMETHasone SOD PHOS INJ 10 MG/ML 1 ML VIAL IV PUSH (18:47)
[2025-01-25 18:56] LABS: Thyroid Stimulating Hormone Reflex 1.310 uIU/mL (0.465-4.68)
[2025-01-25 18:59] LABS: Influenza A QL RT-PCR Negative (Negative); Influenza B QL RT-PCR Negative (Negative); RSV RNA, RT-PCR Negative (Negative); SARS-CoV-2 RNA PCR Negative (Negative)
[2025-01-25] MEDS: KETOROLAC 15 MG/ML VIAL (*BKC) IV PUSH (19:50)
--- OUTSIDE RECORDS SUMMARY | 2025-01-25 19:51 | XMS_ITS | Clinical Summary ---
Author Organization [facility] [address] Address [address] [place] [address] Care Team Providers Care Rental Manager Name Role Phone Dangelo Macdonald MD Primary Care Provider [phone] Allergies Active Allergy Reactions Criticality Noted Date Comments Mkraykk-Znq-Kew Reductase Inhibitors Muscle pain Medium 11/24/2017 Medications aspirin 81 mg tabletIndicatio ns:Exertional chest pain Take 1 tablet (81 mg total) by mouth daily. 30 tablet 11 10/21/19 18 Active magnesium amino acid chelate 100 mg tabletIndicatio ns:hypomagnesem ia Take 2 tablets (200 mg total) by mouth daily 08/04/19 24 Active lisinopriL (PRINIVIL,ZESTR IL) 20 mg tablet Take 1 tablet (20 mg total) by mouth daily 90 tablet 3 04/21/19 25 Active Repatha SureClick 140 mg/mL pen injector INJECT 1 PEN SUBCUTANEOUSLY EVERY 2 WEEKS 6 mL 3 09/01/19 25 Active carvediloL (COREG) 6.25 mg tabletIndicatio ns:PVCs (premature ventricular contractions) TAKE 1 TABLET BY MOUTH TWICE DAILY WITH MEALS 180 tablet 3 10/22/19 25 Active Active Problems Problem Noted Date Diagnosed Date Intractable episodic headache 06/24/2023 Right carotid bruit 12/18/2022 PVCs (premature ventricular contractions) 2020 Nonrheumatic mitral valve regurgitation 01/04/20 21 History of COVID-19 06/26/2020 Coronary artery disease invo lving mentasta coronary artery of mentasta heart without angina pectoris 11/24/2017 CUMMINGS (dyspnea on exertion) 10/20/2017 Hyperlipidemia LDL goal <70 10/20/2017 Essential hypertension 10/20/2017 Exertional chest pain 10/20/2017 Gastroesophageal reflux disease without esophagi tis 10/20/2017 Family history of ischemic heart disease 018 Encounters Date Type Department Care Team Description 01/25/2025 Telephone [facility] Cardiology [address] [place] [address] Jim Carr MD from Last 3 Months Medical History Medical History Date Comments Hypertension Hyperlipidemia Acid indigestion Enlarged prostate Kidney stones Family History Medical History Relation Name Comments Aneurysm Father Stroke Mother Heart disease Sister Relation Name Status Comments Brother 1 Alive Brother 2 Alive Father (Age 77) Mother (Age 81) Sister Alive Social History Tobacco Use Types Packs/Day Years Used Date Smoking Tobacco: Never Smokeless Tobacco: Never Tobacco Cessation:Counseling Given: Not Answered Alcohol Use Standard Drinks/Week Comments Yes 2 (1 standard drink = 0.6 oz pur e alcohol) Sex and Gender Information Value Date Recorded Sex Assigned at Not on file Legal Sex Male 6:42 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 Gender Identity Not on file Sexual Orientation Not on file Obstetrics History Last Filed Vital Signs Vital Sign Reading Time Taken Comments Blood Pressure 120/80 2024 11:02 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 Pulse 55 2024 11:02 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 Temperature - - Respiratory Rate 14 10/20/2017 12:25 PM CDT Oxygen Saturation 96% 2024 11:02 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 Inhaled Oxygen Concentration - - Weight 95.7 kg (211 lb) 2024 11:02 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 Height 177.8 cm (5' 10) 2024 11:02 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 Body Mass Index 30.28 2024 11:02 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 Plan of Treatment Health Maintenance Due Date Last Done Comments Colon Cancer Screening-Colonoscopy 1955 Depression Screening 1955 Fall Risk Assessment 1955 Hepatitis C Screening 1955 Prostate Cancer Screening-PSA 1955 DTaP/Tdap/Td Vaccine (1 - Tdap) 1966 Hepatitis B Screening 1973 Pneumococcal vaccine 65+ (2 of 2 - PCV) 01/09/2019 1 Well Visit 65+ 2020 Influenza Vaccine (#1) 2024 01/14/2019, 2017 Zoster Vaccine Completed 03/15/2019, 01/14/2019 Insurance [facility] CHOICE PLUS CHOICE PLUS Care Teams Rental Manager Relationship Specialty Start Date End Date Dangelo Macdonald MD PCP - General Family Medicine 06/13/22
--- OUTSIDE RECORDS SUMMARY | 2025-01-25 19:51 | XMS_ITS | Clinical Summary ---
Author Organization [facility] Address [address] [facility] Attn: Epic Prelude ADT [place] [address] Care Team Providers Care Missileman Name Role Phone Dexter Easton MD Primary Care Provider Social History Tobacco Use Types Packs/Day Years Used Date Smoking Tobacco: Never Assessed Sex and Gender Information Value Date Recorded Sex Assigned at Not on file Legal Sex Male 3:55 AM HAND NAILER Gender Identity Not on file Sexual Orientation Not on file Plan of Treatment Health Maintenance Due Date Last Done Comments DTAP/TDAP/TD VACCINES (1 - Tdap) 1974 COLORECTAL SCREENING 2000 Colorectal Cancer Screening 2000 FIT-DNA Q 3 years 2000 FIT/FOBT Q 1 year 2000 Flex Sig/CT Colonography Q 5 years 2000 PNEUMOCOCCAL VACCINE 50+ YEARS (1 of 1 - PCV) 03/26/20 05 ZOSTER VACCINE (1 of 2) 2005 INFLUENZA VACCINE (#1) 2024 RSV VACCINE (60+ or ) (1 - 1-dose 75+ series) 2030 Care Teams Missileman Relationship Specialty Start Date End Date Dexter Easton MD [address] [place] [id number] PCP - General 12/07/99
--- OUTSIDE RECORDS SUMMARY | 2025-01-25 19:51 | XMS_ITS | Encounter Summary ---
Author Organization [facility] Address [address] [place] [address] Care Team Providers Care Network Security Consultant Name Role Phone Dexter Easton MD Primary Care Provider [phone] Encounter Details Date Type Department Care Team (Latest Contact Info) Description 03/05/1999 Outpatient Historical [facility] OBSERVATION BED Backer, Vaughn Newberry MD NO ADDRESS ON FILE Displacement of lumbar intervertebral disc without myelopathy (Primary Dx) Social History Tobacco Use Types Packs/Day Years Used Date Smoking Tobacco: Never Assessed Sex and Gender Information Value Date Recorded Sex Assigned at Not on file Legal Sex Male 3:55 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
--- OUTSIDE RECORDS SUMMARY | 2025-01-25 19:51 | XMS_ITS | Encounter Summary ---
Author Organization [facility] Address [address] [place] [address] Care Team Providers Care Television Installer Name Role Phone Dexter Easton MD Primary Care Provider [phone] Encounter Details Date Type Department Care Team (Latest Contact Info) Description 12/07/1999 Outpatient Historical HIS OBSERVATION BED Anirudh Max MD [address] [place] [address] [place] [address] Vaughn Lutz MD NO ADDRESS ON FILE Backache, unspecified (Primary Dx) Social History Tobacco Use Types Packs/Day Years Used Date Smoking Tobacco: Never Assessed Sex and Gender Information Value Date Recorded Sex Assigned at Not on file Legal Sex Male 3:55 AM PSYCHIATRY PHYSICIAN Gender Identity Not on file Sexual Orientation Not on file documented as of this encounter Plan of Treatment Not on file documented as of this encounter Visit Diagnoses Diagnosis Backache, unspecified- Primary documented in this encounter Care Teams Television Installer Relationship Specialty Start Date End Date Dexter Easton MD [address] [place] [address] PCP - General 12/07/99 documented as of this encounter
--- OUTSIDE RECORDS SUMMARY | 2025-01-25 19:51 | XMS_ITS | Encounter Summary ---
Author Organization [facility] Address [address] [place] [address] Care Team Providers Care Machine Setup Operator Name Role Phone Dangelo Macdonald MD Primary Care Provider [phone] Encounter Details Date Type Department Care Team (Late st Contact Info) Description 01/25/2025 Telephone [facility] Medical [facility] Cardiology [address] [place] [address] Jim Carr MD [address] [facility] [address] [address] [facility] [address] [place] [address] Social History Tobacco Use Types Packs/Day Years Used Date Smoking Tobacco: Never Smokeless Tobacco: Never Alcohol Use Standard Drinks/Week Comments Yes 2 (1 standard drink = 0.6 oz pur e alcohol) Sex and Gender Information Value Date Recorded Sex Assigned at Not on file Legal Sex Male 6:42 AM BEAN SNAPPER Gender Identity Not on file Sexual Orientation Not on file documented as of this encounter Miscellaneous Notes * Telephone Encounter - Mary Cardenas RN - 01/25/2025 4:30 PM CDT JASWINDER MAF: Spoke to pt and , For the last week patient has had an episode about 1-2 times a day where he has sudden onset chest pressure and difficulty taking a deep breath, this is accompanied by dizzinessand resolves after 10-15 minutes. These episodes happen during activity or at rest. States that for the last 30 minutes he has had worsening chest pressure and feels like he can't geta breath, his head is pounding and he feels weak and dizzy. B/P was 145/50, Instructed pt he needs emergent evaluation in closest ED. Pt and are agreeable documented in this encounter Plan of Treatment Not on file documented as of this encounter Visit Diagnoses Not on filedocumented in this encounter Care Teams Machine Setup Operator Relationship Specialty Start Date End Date Dangelo Macdonald MD PCP - General Family Medicine 06/13/22 documented as of this encounter
--- OUTSIDE RECORDS SUMMARY | 2025-01-25 19:51 | XMS_ITS | Encounter Summary ---
Author Organization [email or web address] Address 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
[2025-01-25] MEDS: BELLADONNA ALK/PHENOB ELIX 10 ML, MAG HYDROX/ALUMINUM HYD/SIMETH 30 ML, LIDOCAINE 2% VI... PO (19:52)
--- NOTE | 2025-01-25 20:11 | ECG_ITS ---
Test Date: 2025-01-25 20:20:00 Measurements Intervals [place] Rate: 53 P: -35 DE: 195 QRS: 22 QRSD: 85 T: 30 QT: 387 QTc: 365 Interpretive Statements SINUS BRADYCARDIA BORDERLINE AV CONDUCTION DELAY CANNOT R/O SEPTAL INFARCT, AGE INDETERMINATE CONSIDER INFERIOR INFARCT, AGE INDETERMINATE BASELINE ARTIFACT- I, III, AVR, AVL, AVF ABNORMAL ECG Compared to ECG 01/25/2025 17:03:47 No significant changes Electronically Signed On 01-26-2025 06:13:43 CDT by Fahad Smith D.O.
[2025-01-25 20:42] LABS: Troponin I < 0.012 ng/mL (0.000-0.034)
== END 2025-01-25 21:19 | disposition home or self-care (01) ==
PROVIDERS: Student in an Organized Health Care Education/Training Program; Emergency Provider Registered Nurse; PCP Family Medicine
DX: K22.81 Esophageal polyp (principal); R07.89 Other chest pain; R06.02 Shortness of breath; R51.9 Headache, unspecified; Z20.822 Contact with and (suspected) exposure to COVID-19; Z79.82 Long term (current) use of aspirin; Z79.899 Other long term (current) drug therapy; R00.1 Bradycardia, unspecified; R94.31 Abnormal electrocardiogram [ECG] [EKG]
CPT/HCPCS: 36415; 70450; 71046; 71275; 80053; 83690; 83880; 84443; 84484; 85025; 85380; 85610; 85730; 87637; 93005; 96361; 96374; 96375; 99284; A9270; J1100; J1200; J1885; J2765; J7030; Q9967

== ENCOUNTER 2025-02-07 00:04 | Day surgery (SDC) | payer MEDICARE, SELFPAY ==
[2025-01-31 13:53] VITALS: BMI 28.8
[2025-02-07 06:22] VITALS: BMI 28.9
[2025-02-07 06:23] VITALS: BP 139/82; PULSE 54; RESP 16; TEMP 36.4; O2SAT 99
[2025-02-07] MEDS: LACTATED RINGERS 1,000 ML 150 ML IV CONT (06:30)
--- NOTE | 2025-02-07 07:01 | WPDANESEPPF ---
Anes - Initial Pre Proc Eval Procedure: Operation Date: 02/07/25 07:30 Proposed Procedures p Esophagogastroduodenoscopy EGD - Renaldo Bean MD Date/Time: 02/07/25 07:01 Surgeon: Renaldo Bean MD Pre Op Diagnosis: Esophageal polyp Patient Data Age: 69 Gender: M Height: 1.78 m Weight: 91.5 kg Last Vital Signs Temp 36.4 C 02/07/25 06:23 Pulse 54 L 02/07/25 06:23 Resp 16 02/07/25 06:23 BP 139/82 02/07/25 06:23 Pulse Ox 99 02/07/25 06:23 O2 Del Method Room Air 02/07/25 06:23 Allergies Allergy/AdvReac Type Severity Reaction Status Date / Time atorvastatin Allergy Unknown - severe Verified 02/07/25 06:20 muscular aches levofloxacin Allergy Unknown Nausea Verified 02/07/25 06:20 simvastatin Allergy Unknown -severe Verified 02/07/25 06:20 muscle aches Home Medications ?Medication ?Instructions ?Recorded ?Confirmed ?Type evolocumab 420 mg/3.5 mL 420 mg subcut .every 2 weeks 08/22/20 01/31/25 History subcutaneous wearable injector (Repatha Pushtronex) aspirin 81 mg tablet,delayed 81 mg PO DAILY 05/01/22 02/07/25 History release (Kendall Low Dose Aspirin) carvedilol 6.25 mg tablet 6.25 mg PO ONCE 05/01/22 02/07/25 History lisinopril 20 mg tablet 20 mg PO DAILY 01/07/23 02/07/25 History magnesium 200 mg tablet 200 mg PO DAILY 08/07/23 02/07/25 History Patient hx anesthesia problems: none Family hx anesthesia problems: none Results Review: All pre-operative results and documents have been reviewed as part of the pre-operative evaluation. ON LICENSE OF [facility] Past Medical History Medical History (Updated 02/07/25 @ 06:52 by Matt Castro DO) CAD (coronary artery disease) Anterior dislocation of left shoulder Vascular occlusion Tietze's disease Reflux esophagitis LLQ abdominal pain Brachial plexopathy Angina pectoris, unspecified Hypertension Cardiac disorder Surgical History Surgical History (Updated 02/07/25 @ 06:52 by Matt Castro DO) History of coronary artery stent placement S/P Sal fundoplication (with gastrostomy tube placement) History of back surgery S/P ureteral stent placement Family History Family History Mother Cerebrovascular accident Father Family history of malignant neoplasm Family history of heart disease in male family member before age 55 Other Family history of congenital heart disease Social History Social History Smoking status: Never smoker Alcohol intake: current Substance use type: does not use Lack of Transportation: No Lack of Food: Never True Current Housing: I Have Housing Concerned About Future Housing: No Difficulty Paying Gas/Electric Bills: No Difficulty Paying for Meds: No Currently Unemployed: No Education: High School Diploma/GED Difficulty w/ Childcare or Family Care: No Living arrangements: with family Spiritual care concerns: No Anes - Eval Final PreProcedure Day of Procedure 02/07/25 07:01 Patient weight: overweight Heart: regular rate and rhythm Lungs: clear to auscultation Airway: Mallampati scale class II Neurological: alert and oriented Last oral intake: >/= 8 hours ASA classification: III Emergent: no Anesthetic plan: proceed Anesthesia type and monitoring: general GIVS and standard monitoring Results Review: All pre-operative results and documents have been reviewed as part of the pre-operative evaluation. Informed Consent: The patient's anesthetic plan and its attendant risks and benefits were discussed with the patient/family/POA. Questions were solicited and answers provided to the satisfaction of the patient/family/POA.
--- NOTE | 2025-02-07 07:31 | PM.HPGS ---
History of Present Illness History of Present Illness Consent: Risks, benefits, and alternatives have been discussed and questions answered. Patient agrees to proceed with procedure. Chief complaint: Esophageal polyp Narrative: Lauro Roger is a 69 year old male here for egd, had CT chest as part of evaluation for SBO and noted possible polyp in esophagus, he had Sal fundoplication Review of Systems Review of Systems: All systems reviewed & are unremarkable except as noted in HPI and below PMFSH Past Medical History Medical History (Updated 02/07/25 @ 07:33 by Renaldo Bean MD) Abnormal CT scan, esophagus CAD (coronary artery disease) Anterior dislocation of left shoulder Vascular occlusion Tietze's disease Reflux esophagitis LLQ abdominal pain Brachial plexopathy Angina pectoris, unspecified Hypertension Cardiac disorder Surgical History Surgical History (Updated 02/07/25 @ 07:33 by Renaldo Bean MD) History of coronary artery stent placement S/P Sal fundoplication (with gastrostomy tube placement) History of back surgery S/P ureteral stent placement Family History Family History Mother Cerebrovascular accident Father Family history of malignant neoplasm Family history of heart disease in male family member before age 55 Other Family history of congenital heart disease Social History Social History Smoking status: Never smoker Alcohol intake: current Substance use type: does not use Lack of Transportation: No Lack of Food: Never True Current Housing: I Have Housing Concerned About Future Housing: No Difficulty Paying Gas/Electric Bills: No Difficulty Paying for Meds: No Currently Unemployed: No Education: High School Diploma/GED Difficulty w/ Childcare or Family Care: No Living arrangements: with family Spiritual care concerns: No Meds Home Medications and Allergies Home Medications ?Medication ?Instructions ?Recorded ?Confirmed ?Type evolocumab 420 mg/3.5 mL 420 mg subcut .every 2 weeks 08/22/20 01/31/25 History subcutaneous wearable injector (Repatha Pushtronex) aspirin 81 mg tablet,delayed 81 mg PO DAILY 05/01/22 02/07/25 History release (Kendall Low Dose Aspirin) carvedilol 6.25 mg tablet 6.25 mg PO ONCE 05/01/22 02/07/25 History lisinopril 20 mg tablet 20 mg PO DAILY 01/07/23 02/07/25 History magnesium 200 mg tablet 200 mg PO DAILY 08/07/23 02/07/25 History Allergies Allergy/AdvReac Type Severity Reaction Status Date / Time atorvastatin Allergy Unknown - severe Verified 02/07/25 06:20 muscular aches levofloxacin Allergy Unknown Nausea Verified 02/07/25 06:20 simvastatin Allergy Unknown -severe Verified 02/07/25 06:20 muscle aches Vital Signs Vital Signs - 24 hr 02/07/25 06:23 Temperature 97.6 F Pulse Rate 54 L Respiratory Rate 16 Blood Pressure 139/82 Pulse Oximetry 99 Oxygen Delivery Room Air Exam Const: General: comfortable and no acute distress HENMT: Face/Nose/Sinus: Normal nares present Eyes: General: appearance normal, both eyes and all related structures Neck: Neck: no JVD Resp: Auscultation: clear to auscultation bilaterally Cardio: Rate: regular rate Rhythm: regular rhythm GI: Inspection: non-distended GI Palp: Yes Soft to palpation Skin: General skin exam: normal color Extrem: General: normal to inspection Psych: Mental Status: mental status grossly normal Assessment and Plan Assessment and plan (1) Abnormal CT scan, esophagus: Code(s): R93.3 - Abnormal findings on diagnostic imaging of other parts of digestive tract Status: Acute Assessment and Plan: egd (2) S/P Sal fundoplication (with gastrostomy tube placement): Code(s): Z93.1 - Gastrostomy status Status: Acute
--- NOTE | 2025-02-07 07:41 | S_PTH ---
PATIENT: Lauro Roger LOC: [facility]#:[id number] AGE/SX: 69/M ROOM: RE02/07/[address]: Renaldo Bean MD : 1955 BED: DIS: 02/07/2025 SPEC #: [id number] RECD: 02/07/25 08:00 STATUS: NELY MARY #: [id number] ILA: 02/07/25 07:[address]: Renaldo Bean DEPT: [facility] Surgical RECD BY: Jayshree Hager ENTERED: 02/07/25 08:01 SP TYPE: Surgical OTHR DR: Dangelo Macdonald MD Tissues: A - Esophageal Biopsy B - Gastric Biopsy Procedures: Hematoxylin and Eosin Stain Gross and Microscopic Level 4
[2025-02-07 07:46] VITALS: BP 118/71; PULSE 59; RESP 20; O2SAT 98
[2025-02-07 07:56] VITALS: BP 137/72; PULSE 54; RESP 16; O2SAT 97
[2025-02-07 08:06] VITALS: BP 131/70; PULSE 55; RESP 21; O2SAT 99
== END 2025-02-07 08:16 | disposition home or self-care (01) ==
PROVIDERS: PCP Family Medicine; Referring Provider Family Medicine; Visit Provider Internal Medicine Gastroenterology
PROC: 0DJ08ZZ Inspection of Upper Intestinal Tract, Via Natural or Artificial Opening Endoscopic (ICD-10-PCS; CPT 43239; principal; 2025-02-07 07:30)
DX: K21.00 Gastro-esophageal reflux disease with esophagitis, without bleeding (principal); K29.70 Gastritis, unspecified, without bleeding
CPT/HCPCS: 43239; 88305; J2003; J2704; J7120